=== PATIENT | male | born 2000 | race Caucasian/White ===

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

== ENCOUNTER 2023-05-27 21:12 | Outpatient (CLI) | payer SELFPAY | END 2023-05-27 23:59 | disposition EMS.NT | LOC: EMS 21:12 | DX: Z04.1 Encounter for examination and observation following transport accident (principal) ==